=== PATIENT | female | born 1945 | race African-American/Black ===

== ENCOUNTER 2017-11-03 16:32 | Emergency (ER) | payer MEDICARE, MEDICAID ==
[~2017-11-03] VITALS: Ht 172.7 cm; Wt 63.0 kg
[~2017-11-03 16:32] MED LIST: ASPI-1159 PO; BRIM5DRO6 BOTHEYE; CITA10SO PO; CITA10TA9; CLON1TAB5; COR3 PO; FURO-151 PO; LEVO50TA8 PO; LISI-186 PO; POTA-79 PO; POTA20TA82 PO; SIMV40TA5 PO; TIMO15DR12 BOTHEYE; WARF6TAB22 PO; XALAO EACHEYE
[2017-11-03 16:38] VITALS: BP 168/97
== END 2017-11-03 19:19 | disposition home or self-care (01) ==
LOC: ER 16:32
DX: H60.12 Cellulitis of left external ear (principal); R59.0 Localized enlarged lymph nodes; I10 Essential (primary) hypertension; E78.00 Pure hypercholesterolemia, unspecified; Z72.0 Tobacco use; Z79.899 Other long term (current) drug therapy
CPT/HCPCS: 99282

== ENCOUNTER 2018-11-29 11:26 | Emergency (ER) | payer MEDICARE, MEDICAID ==
[~2018-11-29] VITALS: Ht 170.2 cm; Wt 68.0 kg
[~2018-11-29 11:26] MED LIST changes: -ASPI-1159 PO; +ASPI-1393 PO; +CLON1TAB12; -CLON1TAB5
[2018-11-29 13:35] LABS: BASOPHILS % 0.8 % (0.0-2.0); EOSINOPHILS % 0.6 % (0.0-5.0); HEMOGLOBIN. 13.9 g/dL (12.0-16.0); LYMPHOCYTES % 35.1 % (20.0-50.0); MEAN CORPUSCULAR HEMOGLOBIN 30.8 pg (28.0-32.0); MEAN CORPUSCULAR VOLUME 91.3 fL (81.0-99.0); MEAN PLATELET VOLUME 8.5 fl (7.4-10.4); MONOCYTES % 5.4 % (2.0-8.0); NEUTROPHILS % 58.1 % (40.0-76.0); PLATELET 168 x1000/uL (130-400); RED BLOOD CELL COUNT 4.49 mill/uL (4.2-5.4); RED CELL DISTRIBUTION WIDTH 14.2 % (11.6-14.6)
[2018-11-29 13:40] LABS: CHLORIDE 110 mEq/L (98-107)
[2018-11-29 16:09] VITALS: BP 154/82
== END 2018-11-29 16:16 | disposition home or self-care (01) ==
LOC: ER 11:26
DX: I16.0 Hypertensive urgency (principal); I10 Essential (primary) hypertension; E78.00 Pure hypercholesterolemia, unspecified; F17.200 Nicotine dependence, unspecified, uncomplicated; Z98.890 Other specified postprocedural states; Z79.82 Long term (current) use of aspirin; Z79.899 Other long term (current) drug therapy; Z88.8 Allergy status to other drugs, medicaments and biological substances; Z88.1 Allergy status to other antibiotic agents
CPT/HCPCS: 36415; 71045; 84484; 93005; 99284; 99406

== ENCOUNTER 2019-11-25 15:35 | Inpatient (IN) | payer MEDICARE, MEDICAID ==
[~2019-11-25] VITALS: Ht 170.2 cm; Wt 57.2 kg
[~2019-11-25 15:35] MED LIST changes: -ASPI-1393 PO; +ASPI-1497 PO; +SIMV-46 PO; -SIMV40TA5 PO
[2019-11-25] MEDS ORDERED: ONDANSETRON HCL 4MG/2ML INJ IV ONE (16:00)
[2019-11-25 16:28] LABS: BASOPHILS % 1.2 % (0.0-2.0); EOSINOPHILS % 1.4 % (0.0-5.0); HEMATOCRIT. 40.2 % (36.0-48.0); HEMOGLOBIN. 13.5 g/dL (12.0-16.0); LYMPHOCYTES % 49.4 % (20.0-50.0); MEAN CORPUSCULAR HEMOGLOBIN 30.5 pg (28.0-32.0); MEAN CORPUSCULAR VOLUME 90.8 fL (81.0-99.0); MEAN PLATELET VOLUME 8.7 fl (7.4-10.4); MONOCYTES % 6.1 % (2.0-8.0); NEUTROPHILS % 41.9 % (40.0-76.0); PLATELET 181 x1000/uL (130-400); RED BLOOD CELL COUNT 4.43 mill/uL (4.2-5.4); RED CELL DISTRIBUTION WIDTH 13.9 % (11.6-14.6)
[2019-11-25 16:34] LABS: CHLORIDE 107 mEq/L (98-107)
[2019-11-25 16:40] LABS: ETHANOL BLOOD < 10 mg/dL
[2019-11-25 16:45] LABS: CREATINE KINASE 94 IU/L (26-192)
[2019-11-25 16:48] LABS: CREATINE KINASE MB FRACTION < 1.0 ng/mL (0.5-3.6)
[2019-11-25 17:06] LABS: CLARITY URINE CLEAR (CLEAR); COLOR URINE YELLOW (YELLOW); KETONES URINE TRACE (NEGATIVE); LEUKOCYTE ESTERASE URINE TRACE (NEGATIVE); NITRITE URINE NEGATIVE (NEGATIVE); OCCULT BLOOD URINE NEGATIVE (NEGATIVE); PROTEIN URINE 1+ (NEGATIVE); SPECIFIC GRAVITY URINE 1.022 (1.005-1.030)
[2019-11-25] MEDS ORDERED: CLONIDINE 0.1MG TABLET PO PRN (17:15)
[2019-11-25] MEDS ORDERED: DIPHENHYDRAMINE 50MG/ML VIAL IV PRN (17:15)
[2019-11-25] MEDS ORDERED: ACETAMINOPHEN 325MG TABLET PO PRN (17:15)
[2019-11-25] MEDS ORDERED: ONDANSETRON HCL 4MG/2ML INJ IV PRN (17:15)
[2019-11-25 17:19] LABS: *AMPHETAMINES SCREEN URINE NEGATIVE (NEGATIVE); *BARBITURATES SCREEN URINE NEGATIVE (NEGATIVE); *BENZODIAZEPINES SCREEN URINE NEGATIVE (NEGATIVE); *COCAINE SCREEN URINE NEGATIVE (NEGATIVE); CANNABINOID URINE SCREEN NEGATIVE (NEGATIVE); OPIATES URINE SCREEN NEGATIVE (NEGATIVE); PHENCYCLIDINE URINE SCREEN NEGATIVE (NEGATIVE)
[2019-11-25 17:21] LABS: METHADONE URINE SCREEN NEGATIVE (NEGATIVE)
[2019-11-25 17:30] LABS: PHOSPHORUS 3.3 mg/dL (2.5-4.9)
[2019-11-25] MEDS: ENOXAPARIN 40MG/0.4ML SYR SUBCUT SCH ×2 (20:00→22:21)
[2019-11-25 21:00] VITALS: BP 169/77
[2019-11-26 00:24] VITALS: BP 152/94
[2019-11-26 04:43] VITALS: BP 156/80
[2019-11-26 06:48] LABS: EOSINOPHILS % 1.7 % (0.0-5.0); HEMATOCRIT. 36.7 % (36.0-48.0); HEMOGLOBIN. 12.5 g/dL (12.0-16.0); LYMPHOCYTES % 57.7 % (20.0-50.0); MEAN CORPUSCULAR HEMOGLOBIN 30.7 pg (28.0-32.0); MEAN CORPUSCULAR VOLUME 90.4 fL (81.0-99.0); MEAN PLATELET VOLUME 8.9 fl (7.4-10.4); MONOCYTES % 7.7 % (2.0-8.0); NEUTROPHILS % 31.9 % (40.0-76.0); PLATELET 174 x1000/uL (130-400); RED BLOOD CELL COUNT 4.06 mill/uL (4.2-5.4); RED CELL DISTRIBUTION WIDTH 14.1 % (11.6-14.6)
[2019-11-26 07:01] LABS: CHLORIDE 110 mEq/L (98-107)
[2019-11-26 07:09] LABS: LDL CHOLESTEROL 107 mg/dL (5-100)
[2019-11-26 07:10] LABS: HDL CHOLESTEROL 63 mg/dL (40-59)
[2019-11-26 08:20] VITALS: BP 150/72
[2019-11-26 12:00] VITALS: BP_SYST 144; BP_SYST 145; BP_SYST 152; BP_DIAS 70; BP_DIAS 87; BP_DIAS 89
[2019-11-26] MEDS ORDERED: POTASSIUM CHLORIDE 20MEQ TABLET SR PO NR (12:15)
[2019-11-26] MEDS: ENTRESTO PO SCH ×2 (12:53→21:39)
[2019-11-26] MEDS: ASPIRIN 81MG TABLET PO SCH (12:53)
[2019-11-26 15:57] VITALS: BP 139/79
[2019-11-26 16:21] LABS: T4 FREE 0.63 ng/dL (0.76-1.46)
[2019-11-26 20:00] VITALS: BP_SYST 151; BP_SYST 163; BP_SYST 165; BP_DIAS 74; BP_DIAS 90; BP_DIAS 92
[2019-11-26] MEDS: ENOXAPARIN 40MG/0.4ML SYR SUBCUT SCH (21:37)
[2019-11-26] MEDS: ATORVASTATIN CALCIUM 20MG TABLET PO SCH (21:38)
[2019-11-26] MEDS: CARVEDILOL 12.5MG TABLET PO SCH (21:38)
[2019-11-27] VITALS: BP 155/94
[2019-11-27 04:00] VITALS: BP 139/73
[2019-11-27 08:00] VITALS: BP_SYST 135; BP_SYST 136; BP_SYST 140; BP_DIAS 72; BP_DIAS 87; BP_DIAS 90
[2019-11-27] MEDS: ASPIRIN 81MG TABLET PO SCH (08:51)
[2019-11-27] MEDS: CARVEDILOL 12.5MG TABLET PO SCH ×2 (08:51→20:45)
[2019-11-27] MEDS: ENTRESTO PO SCH ×2 (08:51→20:45)
[2019-11-27 12:00] VITALS: BP_SYST 114; BP_SYST 136; BP_DIAS 77; BP_DIAS 78
[2019-11-27 16:00] VITALS: BP 145/79
[2019-11-27 20:00] VITALS: BP_SYST 142; BP_SYST 144; BP_SYST 151; BP_DIAS 76; BP_DIAS 81
[2019-11-27] MEDS: ATORVASTATIN CALCIUM 20MG TABLET PO SCH (20:45)
[2019-11-27] MEDS: ENOXAPARIN 40MG/0.4ML SYR SUBCUT SCH (20:45)
[2019-11-28] VITALS: BP 159/83
[2019-11-28 04:00] VITALS: BP 139/82
[2019-11-28 06:58] LABS: BASOPHILS % 0.9 % (0.0-2.0); EOSINOPHILS % 1.4 % (0.0-5.0); HEMATOCRIT. 35.9 % (36.0-48.0); HEMOGLOBIN. 12.2 g/dL (12.0-16.0); LYMPHOCYTES % 65.7 % (20.0-50.0); MEAN CORPUSCULAR HEMOGLOBIN 30.7 pg (28.0-32.0); MEAN CORPUSCULAR VOLUME 90.5 fL (81.0-99.0); MEAN PLATELET VOLUME 8.7 fl (7.4-10.4); MONOCYTES % 7.2 % (2.0-8.0); NEUTROPHILS % 24.8 % (40.0-76.0); PLATELET 167 x1000/uL (130-400); RED BLOOD CELL COUNT 3.97 mill/uL (4.2-5.4); RED CELL DISTRIBUTION WIDTH 13.9 % (11.6-14.6)
[2019-11-28 07:59] VITALS: BP_SYST 129; BP_SYST 130; BP_SYST 136; BP_DIAS 81; BP_DIAS 82; BP_DIAS 85
[2019-11-28] MEDS: ASPIRIN 81MG TABLET PO SCH (08:12)
[2019-11-28] MEDS: ENTRESTO PO SCH (08:13)
[2019-11-28] MEDS: CARVEDILOL 12.5MG TABLET PO SCH (08:13)
[2019-11-28 12:00] VITALS: BP 135/78
[2019-11-28] MEDS ORDERED: LEVOTHYROXINE SODIUM 25MCG TABLET PO SCH (12:00)
[2019-11-28] MEDS ORDERED: LEVO25TA7 PO (13:57)
[2019-11-28] MEDS ORDERED: COR3 PO (13:57)
[2019-11-28 15:24] VITALS: BP 136/74
[2019-11-28 15:56] VITALS: BP 137/71
[2019-11-29 09:10] LABS: FOLICLE STIMULATING HORMONE 80.2 mIU/mL (.); PROLACTIN 11.4 ng/mL (4.8-23.3)
== END 2019-11-28 17:46 | disposition home or self-care (01) | DRG 48 ==
LOC: ER 15:35 → 6WST 16:54 → EDBEDREQ 17:30 → ENRESERV 19:51 → 6WST 21:10
PROVIDERS: ADMIT Internal Medicine; ATTEND Internal Medicine
DX: G90.8 Other disorders of autonomic nervous system (principal); I11.0 Hypertensive heart disease with heart failure; E46 Unspecified protein-calorie malnutrition; E78.00 Pure hypercholesterolemia, unspecified; I25.10 Atherosclerotic heart disease of native coronary artery without angina pectoris; H40.9 Unspecified glaucoma; E78.5 Hyperlipidemia, unspecified; I42.9 Cardiomyopathy, unspecified; I50.9 Heart failure, unspecified; F17.200 Nicotine dependence, unspecified, uncomplicated; E89.0 Postprocedural hypothyroidism; F41.0 Panic disorder [episodic paroxysmal anxiety]; Z79.899 Other long term (current) drug therapy; Z83.3 Family history of diabetes mellitus; Z82.49 Family history of ischemic heart disease and other diseases of the circulatory system; Z95.810 Presence of automatic (implantable) cardiac defibrillator; I69.351 Hemiplegia and hemiparesis following cerebral infarction affecting right dominant side; Z91.09 Other allergy status, other than to drugs and biological substances; I25.2 Old myocardial infarction; Z80.1 Family history of malignant neoplasm of trachea, bronchus and lung; Z79.01 Long term (current) use of anticoagulants; Z68.1 Body mass index [BMI] 19.9 or less, adult
CPT/HCPCS: 36415; 71045; 80048; 80053; 80061; 80305; 80320; 81003; 82024; 82533; 82550; 82553; 83001; 83520; 83735; 83880; 84100; 84146; 84439; 84443; 84481; 84484; 85025; 93005; 93970; 99285; J1650; J2405; G0480

== ENCOUNTER 2020-05-14 15:29 | Emergency (ER) | payer MEDICARE, MEDICAID ==
[~2020-05-14] VITALS: Ht 157.5 cm; Wt 63.0 kg
[~2020-05-14 15:29] MED LIST changes: -CITA10TA9; -CLON1TAB12; -FURO-151 PO; +LEVO25TA7 PO; -LEVO50TA8 PO; -LISI-186 PO; -POTA-79 PO; -POTA20TA82 PO; -WARF6TAB22 PO
[2020-05-14 16:50] LABS: BASOPHILS % 1.1 % (0.0-2.0); HEMATOCRIT. 44.6 % (36.0-48.0); HEMOGLOBIN. 14.5 g/dL (12.0-16.0); MEAN CORPUSCULAR VOLUME 92.5 fL (81.0-99.0); MONOCYTES % 6.7 % (2.0-8.0); NEUTROPHILS % 51.2 % (40.0-76.0); PLATELET 195 x1000/uL (130-400); RED BLOOD CELL COUNT 4.82 mill/uL (4.2-5.4); RED CELL DISTRIBUTION WIDTH 14.3 % (11.6-14.6)
[2020-05-14 16:53] LABS: CHLORIDE 106 mEq/L (98-107)
[2020-05-14 23:00] VITALS: BP 149/77
== END 2020-05-14 23:23 | disposition home or self-care (01) ==
LOC: ER 15:29
DX: R05 Cough (principal); R07.89 Other chest pain; I10 Essential (primary) hypertension; Z98.890 Other specified postprocedural states; Z79.899 Other long term (current) drug therapy; Z79.82 Long term (current) use of aspirin; Z88.8 Allergy status to other drugs, medicaments and biological substances; Z20.822 Contact with and (suspected) exposure to COVID-19
CPT/HCPCS: 36415; 71045; 80048; 84484; 85025; 93005; 99285; C9803; U0003; Z7610

== ENCOUNTER 2020-10-08 10:54 | Emergency (ER) | payer MEDICARE, MEDICAID ==
[~2020-10-08] VITALS: Ht 167.6 cm; Wt 80.0 kg
[2020-10-08] MEDS ORDERED: CLONIDINE 0.1MG TABLET PO ONE ×2 (11:15→13:15)
[2020-10-08] MEDS ORDERED: ACETAMINOPHEN 325MG TABLET PO ONE (11:15)
[2020-10-08 14:57] VITALS: BP 148/83
== END 2020-10-08 14:58 | disposition home or self-care (01) ==
LOC: ER 10:54
DX: I16.0 Hypertensive urgency (principal); I10 Essential (primary) hypertension; R07.89 Other chest pain; Z79.899 Other long term (current) drug therapy
CPT/HCPCS: 36415; 71045; 83880; 84484; 93005; 99285

== ENCOUNTER 2021-04-20 09:06 | Inpatient (IN) | payer MEDICARE, OTHER ==
[~2021-04-20] VITALS: Ht 167.6 cm; Wt 64.9 kg
[2021-04-20] MEDS ORDERED: ONDANSETRON HCL 4MG/2ML INJ IV ONE (09:30)
[2021-04-20] MEDS ORDERED: MAGNESIUM/ALUMINUM HYDROXIDE/SIMETHICONE 30ML UDC PO ONE (09:30)
[2021-04-20 10:11] LABS: BASOPHILS % 0.3 % (0.0-2.0); EOSINOPHILS % 1.6 % (0.0-5.0); HEMATOCRIT. 41.7 % (36.0-48.0); HEMOGLOBIN. 14.1 g/dL (12.0-16.0); LYMPHOCYTES % 56.3 % (20.0-50.0); MEAN CORPUSCULAR HEMOGLOBIN 30.9 pg (28.0-32.0); MEAN CORPUSCULAR VOLUME 91.5 fL (81.0-99.0); MEAN PLATELET VOLUME 8.5 fl (7.4-10.4); MONOCYTES % 7.5 % (2.0-8.0); NEUTROPHILS % 34.3 % (40.0-76.0); PLATELET 175 x1000/uL (130-400); RED BLOOD CELL COUNT 4.56 mill/uL (4.2-5.4); RED CELL DISTRIBUTION WIDTH 13.8 % (11.6-14.6)
[2021-04-20 10:16] LABS: CHLORIDE 109 mEq/L (98-107)
[2021-04-20] MEDS ORDERED: NITROGLYCERIN OINT 1GM/INCH UDPKT TD NR (11:15)
[2021-04-20] MEDS ORDERED: FUROSEMIDE 40MG/4ML VIAL IVP NR (11:15)
[2021-04-20] MEDS ORDERED: CLONIDINE 0.1MG TABLET PO PRN (15:15)
[2021-04-20] MEDS ORDERED: ONDANSETRON HCL 4MG/2ML INJ IV PRN (15:15)
[2021-04-20] MEDS ORDERED: ACETAMINOPHEN 325MG TABLET PO PRN (15:15)
[2021-04-20] MEDS ORDERED: GUAIFENESIN 200MG/10ML SUGAR FREE UDC PO PRN (15:15)
[2021-04-20] MEDS ORDERED: MAGNESIUM/ALUMINUM HYDROXIDE/SIMETHICONE 30ML UDC PO PRN (15:15)
[2021-04-20] MEDS ORDERED: DOCUSATE SODIUM 100MG CAPSULE PO PRN (15:15)
[2021-04-20] MEDS ORDERED: HYDROCODONE/ACETAMINOPHEN 5/325MG TABLET PO PRN (15:15)
[2021-04-20] MEDS ORDERED: AMLODIPINE 10MG TABLET PO SCH (15:15)
[2021-04-20] MEDS ORDERED: CITALOPRAM HYDROBROMIDE 10MG TABLET PO SCH (15:45)
[2021-04-20] MEDS: CARVEDILOL 12.5MG TABLET PO SCH ×2 (15:45→21:49)
[2021-04-20] MEDS ORDERED: NALOXONE HCL 0.4MG/ML VIAL IV PRN (15:45)
[2021-04-20] MEDS ORDERED: ENOXAPARIN 40MG/0.4ML SYR SUBCUT SCH (16:00)
[2021-04-20] MEDS: TIMOLOL MALEATE 0.5% OPHTH DROPS 5ML EACHEYE SCH ×2 (16:58→17:00)
[2021-04-20] MEDS: LEVOTHYROXINE SODIUM 25MCG TABLET PO SCH (16:58)
[2021-04-20 20:00] VITALS: BP 145/90
[2021-04-20] MEDS: ATORVASTATIN CALCIUM 40MG TABLET PO SCH (21:48)
[2021-04-20] MEDS: CITALOPRAM HYDROBROMIDE 10MG TABLET PO SCH (22:01)
[2021-04-20 23:55] VITALS: BP 150/74
[2021-04-21 04:00] VITALS: BP 135/76
[2021-04-21] MEDS: LEVOTHYROXINE SODIUM 25MCG TABLET PO SCH (06:14)
[2021-04-21 06:40] LABS: CHLORIDE 108 mEq/L (98-107)
[2021-04-21 06:52] LABS: LDL CHOLESTEROL 99 mg/dL (5-100)
[2021-04-21 06:53] LABS: CREATINE KINASE 45 IU/L (26-192)
[2021-04-21 06:54] LABS: BASOPHILS % 1.3 % (0.0-2.0); EOSINOPHILS % 1.8 % (0.0-5.0); HDL CHOLESTEROL 53 mg/dL (40-59); HEMATOCRIT. 38.7 % (36.0-48.0); HEMOGLOBIN. 13.1 g/dL (12.0-16.0); LYMPHOCYTES % 60.7 % (20.0-50.0); MEAN CORPUSCULAR HEMOGLOBIN 30.5 pg (28.0-32.0); MEAN CORPUSCULAR VOLUME 90.2 fL (81.0-99.0); MEAN PLATELET VOLUME 8.7 fl (7.4-10.4); MONOCYTES % 10.3 % (2.0-8.0); NEUTROPHILS % 25.9 % (40.0-76.0); PLATELET 175 x1000/uL (130-400); RED BLOOD CELL COUNT 4.29 mill/uL (4.2-5.4)
[2021-04-21 09:00] VITALS: BP 136/84
[2021-04-21] MEDS: CARVEDILOL 12.5MG TABLET PO SCH ×2 (09:31→18:52)
[2021-04-21] MEDS ORDERED: REGADENOSON 0.4 MG/5 ML IV NR (10:30)
[2021-04-21 10:49] LABS: T4 FREE 1.23 ng/dL (0.76-1.46)
[2021-04-21] MEDS: TIMOLOL MALEATE 0.5% OPHTH DROPS 5ML EACHEYE SCH ×2 (11:17→17:00)
[2021-04-21] MEDS: ENOXAPARIN 30MG/0.3ML SYR SUBCUT SCH (11:19)
[2021-04-21 12:00] VITALS: BP 147/92
[2021-04-21 12:31] LABS: CREATINE KINASE 53 IU/L (26-192)
[2021-04-21 16:00] VITALS: BP 146/71
[2021-04-21 20:00] VITALS: BP 140/74
[2021-04-21] MEDS: CITALOPRAM HYDROBROMIDE 10MG TABLET PO SCH (20:53)
[2021-04-21] MEDS: ATORVASTATIN CALCIUM 40MG TABLET PO SCH (20:53)
[2021-04-21] MEDS: AMLODIPINE 2.5MG TABLET PO SCH (20:53)
[2021-04-22] VITALS: BP 153/85
[2021-04-22 04:00] VITALS: BP 147/88
[2021-04-22] MEDS: LEVOTHYROXINE SODIUM 25MCG TABLET PO SCH (06:33)
[2021-04-22 07:59] LABS: EOSINOPHILS % 1.1 % (0.0-5.0); HEMATOCRIT. 38.9 % (36.0-48.0); HEMOGLOBIN. 12.9 g/dL (12.0-16.0); LYMPHOCYTES % 47.1 % (20.0-50.0); MEAN CORPUSCULAR HEMOGLOBIN 30.2 pg (28.0-32.0); MEAN PLATELET VOLUME 8.5 fl (7.4-10.4); MONOCYTES % 6.2 % (2.0-8.0); NEUTROPHILS % 44.6 % (40.0-76.0); PLATELET 173 x1000/uL (130-400); RED BLOOD CELL COUNT 4.27 mill/uL (4.2-5.4); RED CELL DISTRIBUTION WIDTH 13.6 % (11.6-14.6)
[2021-04-22 08:00] VITALS: BP 139/82
[2021-04-22 08:13] LABS: CHLORIDE 109 mEq/L (98-107)
[2021-04-22] MEDS ORDERED: ASPIRIN 81MG EC TABLET PO SCH (09:00)
[2021-04-22] MEDS: CARVEDILOL 12.5MG TABLET PO SCH (10:06)
[2021-04-22] MEDS: AMLODIPINE 2.5MG TABLET PO SCH (10:07)
[2021-04-22] MEDS: ENOXAPARIN 30MG/0.3ML SYR SUBCUT SCH (10:10)
[2021-04-22] MEDS: TIMOLOL MALEATE 0.5% OPHTH DROPS 5ML EACHEYE SCH (10:12)
[2021-04-22 11:48] VITALS: BP 149/82
[2021-04-22 12:46] VITALS: BP 149/92
== END 2021-04-22 13:10 | disposition home or self-care (01) | DRG 194 ==
LOC: ER 09:06 → 8WST 11:58 → EDBEDREQ 12:01 → ENRESERV 16:48
PROVIDERS: ADMIT Hospitalist; ATTEND Hospitalist
DX: I11.0 Hypertensive heart disease with heart failure (principal); E44.1 Mild protein-calorie malnutrition; I42.0 Dilated cardiomyopathy; D72.819 Decreased white blood cell count, unspecified; I50.23 Acute on chronic systolic (congestive) heart failure; E03.9 Hypothyroidism, unspecified; E78.00 Pure hypercholesterolemia, unspecified; E78.5 Hyperlipidemia, unspecified; F17.210 Nicotine dependence, cigarettes, uncomplicated; F32.A Depression, unspecified; I44.0 Atrioventricular block, first degree; I45.10 Unspecified right bundle-branch block; F17.200 Nicotine dependence, unspecified, uncomplicated; Z20.822 Contact with and (suspected) exposure to COVID-19; I25.10 Atherosclerotic heart disease of native coronary artery without angina pectoris; Z82.49 Family history of ischemic heart disease and other diseases of the circulatory system; Z86.73 Personal history of transient ischemic attack (TIA), and cerebral infarction without residual deficits; Z95.810 Presence of automatic (implantable) cardiac defibrillator; Z88.1 Allergy status to other antibiotic agents; Z79.82 Long term (current) use of aspirin; Z79.899 Other long term (current) drug therapy; I25.2 Old myocardial infarction; Z68.23 Body mass index [BMI] 23.0-23.9, adult; Z71.6 Tobacco abuse counseling
CPT/HCPCS: 36415; 71045; 80048; 80053; 80061; 82550; 83880; 84439; 84443; 84484; 85025; 87426; 93005; 93306; 93970; 99285; J1650; J1940; J2405

== ENCOUNTER 2021-09-09 09:09 | Emergency (ER) | payer MEDICARE, OTHER ==
[~2021-09-09] VITALS: Ht 167.6 cm; Wt 55.0 kg
[2021-09-09] MEDS: CARVEDILOL 3.125 MG TABLET PO ONE ×2 (09:54→09:57)
[2021-09-09 11:38] VITALS: BP 157/90
== END 2021-09-09 12:00 | disposition home or self-care (01) ==
LOC: ER 10:01
DX: R11.0 Nausea (principal); F17.200 Nicotine dependence, unspecified, uncomplicated; E78.00 Pure hypercholesterolemia, unspecified; I25.2 Old myocardial infarction; I10 Essential (primary) hypertension; Z88.1 Allergy status to other antibiotic agents; Z88.8 Allergy status to other drugs, medicaments and biological substances; Z98.890 Other specified postprocedural states; Z86.73 Personal history of transient ischemic attack (TIA), and cerebral infarction without residual deficits
CPT/HCPCS: 99283

== ENCOUNTER 2021-11-14 08:39 | Emergency (ER) | payer MEDICARE, OTHER ==
[~2021-11-14] VITALS: Ht 165.1 cm; Wt 65.0 kg
[2021-11-14 08:42] VITALS: BP 195/125
[2021-11-14] MEDS ORDERED: ONDANSETRON 4MG ODT PO STA (09:06)
[2021-11-14] MEDS ORDERED: KETOROLAC 60MG/2ML VIAL IM ONE (09:15)
[2021-11-14 09:56] LABS: BASOPHILS % 1.3 % (0.0-2.0); EOSINOPHILS % 1.3 % (0.0-5.0); HEMATOCRIT. 42.2 % (36.0-48.0); LYMPHOCYTES % 39.9 % (20.0-50.0); MEAN CORPUSCULAR HEMOGLOBIN 30.9 pg (28.0-32.0); MEAN CORPUSCULAR VOLUME 92.9 fL (81.0-99.0); MEAN PLATELET VOLUME 8.9 fl (7.4-10.4); NEUTROPHILS % 52.5 % (40.0-76.0); PLATELET 171 x1000/uL (130-400); RED BLOOD CELL COUNT 4.54 mill/uL (4.2-5.4); RED CELL DISTRIBUTION WIDTH 14.2 % (11.6-14.6)
[2021-11-14 11:42] LABS: CHLORIDE 115 mEq/L (98-107)
[2021-11-14 12:52] LABS: CLARITY URINE CLEAR (CLEAR); COLOR URINE YELLOW (YELLOW); KETONES URINE NEGATIVE (NEGATIVE); LEUKOCYTE ESTERASE URINE NEGATIVE (NEGATIVE); NITRITE URINE NEGATIVE (NEGATIVE); OCCULT BLOOD URINE NEGATIVE (NEGATIVE); PROTEIN URINE 1+ (NEGATIVE); SPECIFIC GRAVITY URINE 1.018 (1.005-1.030)
[2021-11-14] MEDS ORDERED: ACET-2708 MT (13:37)
== END 2021-11-14 13:55 | disposition home or self-care (01) ==
LOC: ER 08:39
DX: R10.11 Right upper quadrant pain (principal); I10 Essential (primary) hypertension; I45.2 Bifascicular block; E78.5 Hyperlipidemia, unspecified; I25.2 Old myocardial infarction; Z86.73 Personal history of transient ischemic attack (TIA), and cerebral infarction without residual deficits
CPT/HCPCS: 36415; 80053; 81003; 85025; 99283; J1885; Q0162

== ENCOUNTER 2022-06-30 02:04 | Emergency (ER) | payer MEDICAID, MEDICARE, OTHER ==
[~2022-06-30] VITALS: Ht 165.1 cm; Wt 65.0 kg
[~2022-06-30 02:04] MED LIST changes: +ACET-2708 MT
[2022-06-30 03:11] LABS: CLARITY URINE CLEAR (CLEAR); COLOR URINE YELLOW (YELLOW); KETONES URINE NEGATIVE (NEGATIVE); LEUKOCYTE ESTERASE URINE NEGATIVE (NEGATIVE); NITRITE URINE NEGATIVE (NEGATIVE); OCCULT BLOOD URINE TRACE (NEGATIVE); PH URINE 6.5 (4.5-8.0); PROTEIN URINE TRACE (NEGATIVE); SPECIFIC GRAVITY URINE 1.006 (1.005-1.030); UROBILINOGEN URINE 0.2 E.U./dL (0.2-1.0)
[2022-06-30 03:24] LABS: BASOPHILS % 1.8 % (0.0-2.0); EOSINOPHILS % 1.7 % (0.0-5.0); HEMATOCRIT. 44.8 % (36.0-48.0); HEMOGLOBIN. 14.8 g/dL (12.0-16.0); MEAN CORPUSCULAR HEMOGLOBIN 30.4 pg (28.0-32.0); MEAN CORPUSCULAR VOLUME 92.2 fL (81.0-99.0); MEAN PLATELET VOLUME 8.7 fl (7.4-10.4); NEUTROPHILS % 41.5 % (40.0-76.0); PLATELET 217 x1000/uL (130-400); RED BLOOD CELL COUNT 4.86 mill/uL (4.2-5.4); RED CELL DISTRIBUTION WIDTH 14.7 % (11.6-14.6)
[2022-06-30 03:38] LABS: CHLORIDE 112 mEq/L (98-107)
[2022-06-30 03:39] LABS: PROTHROMBIN TIME 10.9 sec (9.6-11.0)
[2022-06-30] MEDS ORDERED: CEFTRIAXONE 1GM PREMIX 50 ML IV ONE (06:00)
[2022-06-30] MEDS ORDERED: SODIUM CHLORIDE 0.9% 1,000 ML IV ONE (06:00)
[2022-06-30] MEDS ORDERED: SODIUM CHLORIDE 0.9% 1000ML BAG (SEPSIS BOLUS) IV ONE (06:15)
[2022-06-30] MEDS ORDERED: CEFTRIAXONE 1GM PREMIX 50 ML IV NR (10:01)
[2022-06-30 13:51] VITALS: BP 135/73
== END 2022-06-30 14:24 | disposition short-term general hospital (02) ==
LOC: ER 02:04 → CANBEDREQ 08:36 → ER 14:24
DX: R10.9 Unspecified abdominal pain (principal); E78.00 Pure hypercholesterolemia, unspecified; I25.2 Old myocardial infarction; I10 Essential (primary) hypertension; Z88.8 Allergy status to other drugs, medicaments and biological substances; Z88.1 Allergy status to other antibiotic agents; Z98.890 Other specified postprocedural states; Z86.73 Personal history of transient ischemic attack (TIA), and cerebral infarction without residual deficits; Z20.822 Contact with and (suspected) exposure to COVID-19
CPT/HCPCS: 36415; 71045; 74177; 80053; 81003; 83605; 83690; 84484; 85025; 85610; 87040; 87426; 96361; 96365; 99285; C9803; J0696; J7030; Z7610

== ENCOUNTER 2022-08-19 16:16 | Emergency (ER) | payer MEDICARE, OTHER ==
[~2022-08-19] VITALS: Ht 175.3 cm; Wt 68.0 kg
[2022-08-19 17:50] LABS: BASOPHILS % 0.7 % (0.0-2.0); EOSINOPHILS % 0.8 % (0.0-5.0); HEMATOCRIT. 43.1 % (36.0-48.0); HEMOGLOBIN. 14.2 g/dL (12.0-16.0); LYMPHOCYTES % 40.8 % (20.0-50.0); MEAN CORPUSCULAR HEMOGLOBIN 30.8 pg (28.0-32.0); MEAN CORPUSCULAR VOLUME 93.2 fL (81.0-99.0); MEAN PLATELET VOLUME 8.7 fl (7.4-10.4); MONOCYTES % 5.7 % (2.0-8.0); PLATELET 199 x1000/uL (130-400); RED BLOOD CELL COUNT 4.62 mill/uL (4.2-5.4); RED CELL DISTRIBUTION WIDTH 14.2 % (11.6-14.6)
[2022-08-19 18:21] LABS: CHLORIDE 113 mEq/L (98-107)
[2022-08-19 19:46] LABS: CLARITY URINE CLEAR (CLEAR); COLOR URINE YELLOW (YELLOW); KETONES URINE NEGATIVE (NEGATIVE); LEUKOCYTE ESTERASE URINE NEGATIVE (NEGATIVE); NITRITE URINE NEGATIVE (NEGATIVE); OCCULT BLOOD URINE NEGATIVE (NEGATIVE); PH URINE 7.5 (4.5-8.0); PROTEIN URINE 1+ (NEGATIVE); SPECIFIC GRAVITY URINE 1.008 (1.005-1.030); UROBILINOGEN URINE 0.2 E.U./dL (0.2-1.0)
[2022-08-19 19:50] LABS: PROTHROMBIN TIME 11.1 sec (9.6-11.0)
[2022-08-19 22:30] VITALS: BP 148/83
== END 2022-08-19 23:17 | disposition short-term general hospital (02) ==
LOC: ER 16:16 → CANBEDREQ 08-20 19:40
DX: R42 Dizziness and giddiness (principal); R55 Syncope and collapse; I16.0 Hypertensive urgency; I10 Essential (primary) hypertension; E78.00 Pure hypercholesterolemia, unspecified; Z86.73 Personal history of transient ischemic attack (TIA), and cerebral infarction without residual deficits; I25.2 Old myocardial infarction; Z20.822 Contact with and (suspected) exposure to COVID-19
CPT/HCPCS: 36415; 70450; 71045; 80053; 81003; 83880; 84484; 85025; 85610; 87426; 99285; C9803; Z7610